=== PATIENT | female | born 1950 | race Two or more races ===

== ENCOUNTER 2019-01-04 08:00 | Inpatient (IN) | payer OTHER ==
[~2019-01-04] VITALS: Ht 149.9 cm; Wt 50.8 kg
[2019-01-04] MEDS ORDERED: COZAAR50 MG PO (09:16)
[2019-01-04] MEDS ORDERED: ULTRAM50 MG PO (09:16)
[2019-01-04] MEDS ORDERED: [UNRECOGNIZED DRUG - OTHER] PO (09:18)
[2019-01-04] MEDS ORDERED: FOLIC ACID PO (09:18)
[2019-01-10] MEDS ORDERED: FOLIC ACID1 MG PO (08:01)
[2019-01-13] MEDS ORDERED: OXYC1TAB9 PO (09:54)
[2019-01-13] MEDS ORDERED: XARELTO10 MG PO (09:54)
[2019-01-13] MEDS ORDERED: INTEGRA PLUS C1 EACH PO (09:54)
== END 2019-01-13 14:51 | DRG 470 ==
LOC: EDSTATUS 08:00 → ADM 08:00 → O/R 01-10 06:42 → SURH 01-10 06:42 → EDBD 01-10 08:00 → SURH 01-10 08:00 → ADM 01-20 07:30
PROVIDERS: ADMIT Orthopaedic Surgery Sports Medicine
PROC: 0SRC0J9 Replacement of Right Knee Joint with Synthetic Substitute, Cemented, Open Approach (ICD-10-PCS; principal; 2019-01-10 10:45)
DX: M17.11 Unilateral primary osteoarthritis, right knee (principal); I10 Essential (primary) hypertension